=== PATIENT | male | born 1950 | race Caucasian/White ===

== ENCOUNTER → 2018-12-14 | Outpatient (CLI) | payer OTHER ==
[2018-12-14] MEDS: REGADENOSON 0.4 MG/5 ML DISP.SYRIN. IV ONE (08:30)
--- NOTE | 2018-12-14 11:01 | CARD ---
MR#: [id number] Date of Study: 12/14/2018 Ordering Physician: JEVON NDIAYE, Referring Physician: JEVON NDIAYE, Tech: Lizzie Chávez APPROVED REPORT EXAM: Two-dimensional and M-mode echocardiogram with Doppler and color Doppler. Other Information Quality : AverageHR: 68bpm INDICATION Cardiac Disease: CAD RISK FACTORS Hypertension Smoking 2D DIMENSIONS RVDd2.5 (2.9-3.5cm)Left Atrium(2D)3.0 (1.6-4.0cm) IVSd1.2 (0.7-1.1cm)Aortic Root(2D)2.9 (2.0-3.7cm) LVDd4.1 (3.9-5.9cm)LVOT Diameter2.0 (1.8-2.4cm) PWd0.9 (0.7-1.1cm)LVDs2.6 (2.5-4.0cm) FS (%) 36.1 %SV49.1 ml LVEF(%)66.2 (>50%) Aortic Valve AoV Peak Teofilo.114.3cm/sAoV VTI28.0cm AO Peak GR.5.2mmHgLVOT Peak Teofilo.99.1cm/s LVOT VTI 24.90cmAO Mean GR.3mmHg BESS (VMAX)2.11dj9SET (VTI)2.84cm2 Mitral Valve MV E Xxmrogxe26.7cm/sMV DECEL FTJR226hs MV A Uxveooif50.5cm/sE/A Ratio1.2 Pulmonary Valve PV Peak Yximvrnb254.7cm/sPV Peak Grad.4mmHg Tricuspid Valve TR P. Pjmxpegj172en/sRAP DLLTLWEJ6lySn TR Peak Gr.86ceZhVLMJ64dnJj Pulmonary Vein S1 Ckgitxrh35.8cm/sD2 Dymbwsxe26.1cm/s LEFT VENTRICLE The left ventricle is normal size. There is mild to moderate concentric left ventricular hypertrophy. The left ventricular systolic function is normal and the ejection fraction is within normal range. T he Ejection Fraction is 55-60%. There is normal LV segmental wall motion. Transmitral Doppler flow pa ttern is Grade II-pseudonormal filling dynamics. RIGHT VENTRICLE The right ventricle is normal size. There is normal right ventricular wall thickness. The right ventr icular systolic function is normal. ATRIA The left atrium size is normal. The right atrium size is normal. The interatrial septum is intact wit h no evidence for an atrial septal defect or patent foramen ovale as noted on 2-D or Doppler imaging. AORTIC VALVE The aortic valve is normal in structure and function. Doppler and Color Flow revealed no significant aortic regurgitation. There is no significant aortic valvular stenosis. MITRAL VALVE The mitral valve is normal in structure and function. There is no evidence of mitral valve prolapse. There is no mitral valve stenosis. Doppler and Color-flow revealed trace mitral regurgitation. TRICUSPID VALVE The tricuspid valve is normal in structure and function. Doppler and Color Flow revealed trace tricus pid regurgitation with an estimated PAP of 33 mmHg. There is no tricuspid valve prolapse or vegetatio n. There is no tricuspid valve stenosis. PULMONIC VALVE The pulmonic valve is not well visualized. Doppler and Color Flow revealed no pulmonic valvular regur gitation. There is no pulmonic valvular stenosis. GREAT VESSELS The aortic root is normal in size. The IVC is normal in size and collapses >50% with inspiration. PERICARDIAL EFFUSION There is no evidence of significant pericardial effusion. Critical Notification Critical Value: No <Conclusion> The left ventricular systolic function is normal and the ejection fraction is within normal range. Th e Ejection Fraction is 55-60%. There is normal LV segmental wall motion. Signed by : Jevon Ndiaye, Electronically Approved : 12/14/2018 11:01:22
--- NOTE | 2018-12-14 12:34 | RAD ---
MR#: [id number] Date of Study: 12/14/2018 Ordering Physician: JEVON CANALES, Referring Physician: ALTA HERNANDEZ Tech: RT Luke (Nina) (N) APPROVED REPORT Test Type: Pharmacological Test Indications: CAD Cardiac History: See Electronic Medical Record Resting Heart Rate: 60 bpm Resting Blood Pressure: 165/72mmHg Pretest Chest Pain: No chest pain Pharm. Details Pharmacologic stress testing was performed using 0.4mg per 5ml of regadenoson given intravenously ove r 7-10 seconds. Stress Symptoms Dyspnea POST EXERCISE Max HR: 124 bpm Max Blood Pressure: 127/62mmHg Blood Pressure response to exercise: Normal blood pressure response during stress. Chest Pain: No. INTERPRETATION Stress EKG Conclusion: No evidence of stress induced EKG changes. Imaging Protocol IMAGE PROTOCOL: Stress Tc-99m/rest Tc-99m 2 days Rest: Stress: Viability: Radiopharm.Tc99m Sestamibi [id number] Duration 15min. Img Date 12/14/2018 Inj-Img Gosp97izw. Stress Admin Site: IV - Right HandAdministrator: RT Luke (Nina)(N) STRESS DATA End Diast. Vol.72.0mlAv. Heart Rate60.0bpm End Syst. Vol.15.0mlCO Index BSA3.4L/min Myocardial Shoi515.0gEject. Zdxncqjn10.0% Stress Rates Pk. Fill Rate3.11EDV/secLVtime Pk. Fill 290.57msec Pk. Empty Rate4.02ESV/secLVtime Pk. Fpcvt372.59msec 04/22 Pk. Fill1.13EDV/sec Stress Scores Regional WT3.00Summed WT12.00 Regional WM0.00Summed WM2.00 LV Perfusion Normal perfusion at stress Wall Motion Normal wall motion. LV Perf. Quant 17 Seg. SSS3.00 Stress Defect Extent (% LAD)0.00Rest Defect Extent (% LAD)Rev. Defect Extent (% LAD)0.00 Stress Defect Extent (% LCX) 26.30Rest Defect Extent (% LCX)Rev. Defect Extent (% LCX)0.00 Stress Defect Extent (% RCA)0.00Rest Defect Extent (% RCA)Rev. Defect Extent (% RCA)0.00 Stress Defect Extent (% SENA)4.60Rest Defect Extent (% SENA)Rev. Defect Extent (% SENA)0.00 Other Information Quality:Good Risk Assessment: Low Risk Conclusion 1. No evidence of EKG changes with stress testing. 2. Normal perfusion at stress. 3. Low risk study. 4. EF > 60%. Signed by : Jevon Canales, Electronically Approved : 12/14/2018 12:33:32
--- NOTE | 2018-12-14 18:32 | RAD ---
MR#: [id number] Date of Study: 12/14/2018 Ordering Physician: JEVON NDIAYE, Referring Physician: JEVON NDIAYE, Tech: Amna Velázquez RVT,[facility] APPROVED REPORT Patient Location: OUT-PATIENT Indications Claudication: PAD Grayscale images of the bilateral lower extremity arterial vessels revealed diffuse moderate atherosc lerosis. On the right there is likely a greater than 50% stenosis involving the saphenous popliteal junction. The below-knee waveforms are monophasic. On the left the SFAs occluded from the proximal to distal segment. There is reconstitution at the sap henous popliteal junction. The below-knee waveforms are monophasic and severely diminished in velocit y suggestive of more proximal disease. Risk Factors Hypertension Hyperlipidemia Smoking VELOCITY AND DOPPLER WAVEFORM ANALYSIS RIGHT cm/secWaveformSeverity LEFT cm/secWaveform Severity pCFA 176.0BiphasicpCFA 89.0Triphasic Prof Fem Art. 239.6BiphasicProf Fem Art. Fem Art Prox. 126.4BiphasicFem Art Prox. Occluded Fem Art Mid. 145.3BiphasicFem Art Mid. Occluded Fem Art Dist. 94.0BiphasicFem Art Dist. 62.0Monophasic Pop Art(AK) Pop Art(AK) Pop Art(Fossa) 36.6BiphasicPop Art(AK) 27.0Monophasic Pop Art(BK) Pop Art(BK) EDITOR DEPARTMENT Prox. 39.8BiphasicPTA Prox. 19.9Monophasic EDITOR DEPARTMENT Dist. 25.3MonophasicPTA Dist. 25.5Monophasic Per Art Mid. 47.0BiphasicPer Art Mid. 17.1Monophasic LILIANA Prox. 106.6BiphasicATA Prox. 21.7Monophasic DPA 83BiphasicDPA 15.0Monophasic Critical Notification Critical Value: No <Conclusion> 1. Severe left-sided disease, moderate right sided disease. Signed by : Jevon Ndiaye, Electronically Approved : 12/14/2018 18:32:07
--- NOTE | 2018-12-14 18:34 | RAD ---
MR#: [id number] Date of Study: 12/14/2018 Ordering Physician: JEVON NDIAYE, Referring Physician: JEVON NDIAYE, Tech: Amna Velázquez RVT, [facility] APPROVED REPORT Patient Location: OUT-PATIENT Laterality:Bilateral Indications Grayscale images of the bilateral common carotid arteries demonstrates moderate plaque at the level o f the carotid bulbs. Based on spectral waveforms and velocities there is overall 0 to less than 50% stenosis involving the internal carotid arteries bilaterally. The vertebral velocities are antegrade. Normal ICA to CCA rat ios noted. Risk Factors Hypertension: PAD Smoking Doppler Spectral Velocity Analysis Right Left pCCA 119/11 cm/spCCA 136/24 cm/s mCCA 101/14 cm/smCCA 116/16 cm/s dCCA 74/12 cm/sdCCA 89/16 cm/s Bulb 61/10 cm/sBulb 120/20 cm/s ECA 133/13 cm/sECA 106/6 cm/s pICA 61/13 cm/spICA 111/16 cm/s Susan 78/26 cm/smICA 91/23 cm/s dICA 80/22 cm/sdICA 93/25 cm/s Vert. 67/15 cm/sVert. 52/10 cm/s ICA/CCA 0.67ICA/CCA 0.82 Critical Notification Critical Value: No <Conclusion> 1. No significant bilateral carotid occlusive disease. Signed by : Jevon Ndiaye, Electronically Approved : 12/14/2018 18:34:12
== END | disposition home or self-care (01) ==
LOC: NM 07:44
PROVIDERS: ATTEND Internal Medicine Cardiovascular Disease
DX: I65.23 Occlusion and stenosis of bilateral carotid arteries (principal); I11.9 Hypertensive heart disease without heart failure; I25.10 Atherosclerotic heart disease of native coronary artery without angina pectoris; E78.5 Hyperlipidemia, unspecified; I73.9 Peripheral vascular disease, unspecified; Z87.891 Personal history of nicotine dependence
CPT/HCPCS: 78452; 93017; 93306; 93880; 93925; A9500; J2785

== ENCOUNTER 2019-08-20 15:23 | Emergency (ER) | payer MEDICARE, OTHER ==
[~2019-08-20] VITALS: Ht 170.2 cm; Wt 55.0 kg
[2019-08-20 15:23] VITALS: BP 111/65
== END 2019-08-20 15:36 | disposition left against medical advice (07) ==
LOC: ER 15:23
DX: G47.00 Insomnia, unspecified (principal); Z53.21 Procedure and treatment not carried out due to patient leaving prior to being seen by health care provider

== ENCOUNTER 2019-09-26 12:43 | Emergency (ER) | payer MEDICARE ==
[~2019-09-26] VITALS: Ht 170.2 cm; Wt 54.0 kg
[2019-09-26 12:47] VITALS: BP 105/62
--- NOTE | 2019-09-26 13:08 | PHYS DOC ---
Past History Past Medical History: High Cholesterol, Hypertension, Schizophrenia Additional Past Medical Histor: PVD Additional Past Surgical Histo: Femoropopliteal bypass Smoking: Cigarettes Alcohol Use: Occasionally General Adult EDM: Chief Complaint: BACK PAIN OR INJURY HPI: HPI: Patient is a 69-year-old male who presents to the emergency department for evaluation of atraumatic lower back pain, which has been waxing and waning for t he past few days. He denies any definite injury. He has not had any falls, and describes the pain in his sacral area, worse when he sits down. He denies any numbness, weakness, incontinence, or saddle anesthesia. He has not had any fevers or chills. There are no alleviating or exacerbating factors to his symptoms otherwise. Review of Systems: Review of Systems: Constitutional: Denies fever or chills Eyes: Denies change in visual acuity HENT: Denies nasal congestion or sore throat Respiratory: Denies cough or shortness of breath Cardiovascular: Denies chest pain or edema GI: Denies abdominal pain, nausea, vomiting, bloody stools or diarrhea : Denies dysuria Musculoskeletal: Denies upper or mid back pain or joint pain Integument: Denies rash Neurologic: Denies headache, focal weakness or sensory changes Endocrine: Denies polyuria or polydipsia Lymphatic: Denies swollen glands Psychiatric: Denies depression or anxiety Heart Score: Risk Factors: Risk Factors: DM, Current or recent (<one month) smoker, HTN, HLP, family history of CAD, obesity. Risk Scores: Score 0 - 3: 2.5% MACE over next 6 weeks - Discharge Home Score 4 - 6: 20.3% MACE over next 6 weeks - Admit for Clinical Observation Score 7 - 10: 72.7% MACE over next 6 weeks - Early Invasive Strategies Current Medications: Current Meds: Current Medications Medications (Trade) Dose Ordered Sig/Gosia Start Time Stop Time Status Last Admin Dose Admin Acetaminophen (Tylenol) 650 mg 1X ONCE 09/26/19 13:15 09/26/19 13:16 UNV Allergies: Allergies: Allergies Coded Allergies Type Severity Reaction Last Updated Verified No Known Drug Allergies 12/14/18 No Physical Exam: PE: PHYSICAL EXAM: CONSTITUTIONAL: Well developed, well nourished HEAD: normocephalic, atraumatic EENT: PERRL, EOMI. Conjunctivae normal color, sclerae non-icteric; moist mucous membranes. NECK: Supple, non-tender; no meningismus. LUNGS: Lungs CTA, breathing even and unlabored. Normal air movement. HEART: Regular rate and rhythm, no murmur CHEST: No deformity; non-tender ABDOMEN: The abdomen is soft, and non-tender, no palpable or pulsatile masses or bruits. EXTREM: Normal ROM; no deformity, no calf tenderness. Normal pulses palpable in all extremities. There is no pedal edema. SKIN: No rash; no diaphoresis NEURO: Alert; normal speech and cognition; CN's grossly intact; strength grossly intact without focal deficit. Patellar reflexes are 2+ bilaterally. There is no foot drop. There is no perineal anesthesia. BACK: No CVA TTP. There is mild tenderness to palpation in the sacral area, the remainder of the lumbar spine is nontender. EKG: EKG: [] Radiology/Procedures: Radiology/Procedures: PROCEDURE: SCAN OF ABDOMINAL AORTA Ultrasound of the abdominal aorta 09/26/2019 CLINICAL HISTORY: Low back pain. History of peripheral vascular disease. TECHNIQUE: A real-time ultrasound examination of the abdominal aorta was performed. Multiple images were obtained. FINDINGS: Moderate atheromatous/atherosclerotic plaque formation is seen involving the abdominal aorta and its branches. The abdominal aorta tapers normally. No aneurysm is seen. The common iliac arteries are not well visualized due to overlying bowel gas. IMPRESSION: Moderate atheromatous/atherosclerotic plaque formation is seen involving the abdominal aorta. No aneurysm is seen.[] PROCEDURE: LUMBAR SPINE 2-3V Three-view lumbar spine radiographs 09/26/2019 CLINICAL HISTORY: Low back pain. AP and 2 lateral digital radiographs of the lumbar spine were obtained. Very mild S-shaped curvature of the thoracolumbar spine is seen. No fracture or subluxation of the lumbar vertebrae is noted. Degenerative changes are seen involving the lower thoracic and throughout the lumbar disc spaces consisting of vertebral endplate sclerosis and minimal to mild anterior and posterior vertebral body osteophyte formation. Degenerative changes are seen involving the facet joints throughout the mid and lower lumbar disc spaces. Atherosclerotic calcification of the abdominal aorta and its branches is seen. IMPRESSION: No fracture or subluxation of the lumbar vertebrae is seen. Course & Med Decision Making: Course & Med Decision Making Pertinent Labs and Imaging studies reviewed. (See chart for details) [] 1:35 PM: The patient's condition remains stable. I discussed test results in detail with the patient, the need for further outpatient evaluation by his PCP/vascular surgeon, home care plan and return precautions Taco Disclaimer: Taco Disclaimer: This electronic medical record was generated, in whole or in part, using a voice recognition dictation system. Departure Departure: Impression: Primary Impression: Low back pain Disposition: HOME/RESIDENCE PRIOR TO ADM Condition: STABLE Referrals: JOSE MOCK (PCP) Patient Instructions: Atherosclerosis, Back Pain, Adult, Smoking Cessation Additional Instructions: Ibuprofen 400-600 mg every 6 hours may help improve your symptoms. Applying a heating pad to the affected area may help improve your symptoms. The prescribed medications may cause drowsiness-use caution while taking. Scripts Cyclobenzaprine Hcl (CYCLOBENZAPRINE HCL) 10 Mg Tablet 1 TAB PO TID PRN for PAIN, #20 TAB Prov: TRISTIAN SERRA MD 09/26/19 Justification of Admission: Justification of Admission: Justification of Admission Dx: N/A TRISTIAN SERRA MD Sep 26, 2019 13:08
[2019-09-26] MEDS ORDERED: ACETAMINOPHEN 325 MG TABLET PO ONE (13:15)
--- NOTE | 2019-09-26 13:32 | RAD ---
Ultrasound of the abdominal aorta 09/26/2019 CLINICAL HISTORY: Low back pain. History of peripheral vascular disease. TECHNIQUE: A real-time ultrasound examination of the abdominal aorta was performed. Multiple images were obtained. FINDINGS: Moderate atheromatous/atherosclerotic plaque formation is seen involving the abdominal aorta and its branches. The abdominal aorta tapers normally. No aneurysm is seen. The common iliac arteries are not well visualized due to overlying bowel gas. IMPRESSION: Moderate atheromatous/atherosclerotic plaque formation is seen involving the abdominal aorta. No aneurysm is seen. Electronically signed by: Froy Pérez MD (09/26/2019 1:29 PM) [id number]
--- NOTE | 2019-09-26 13:34 | RAD ---
Three-view lumbar spine radiographs 09/26/2019 CLINICAL HISTORY: Low back pain. AP and 2 lateral digital radiographs of the lumbar spine were obtained. Very mild S-shaped curvature of the thoracolumbar spine is seen. No fracture or subluxation of the lumbar vertebrae is noted. Degenerative changes are seen involving the lower thoracic and throughout the lumbar disc spaces consisting of vertebral endplate sclerosis and minimal to mild anterior and posterior vertebral body osteophyte formation. Degenerative changes are seen involving the facet joints throughout the mid and lower lumbar disc spaces. Atherosclerotic calcification of the abdominal aorta and its branches is seen. IMPRESSION: No fracture or subluxation of the lumbar vertebrae is seen. Electronically signed by: Froy Pérez MD (09/26/2019 1:32 PM) [id number]
[2019-09-26] MEDS ORDERED: CYCL-331 PO (13:40)
== END 2019-09-26 13:48 | disposition home or self-care (01) ==
LOC: ER 12:43
DX: M54.5 Low back pain (principal); E78.00 Pure hypercholesterolemia, unspecified; I10 Essential (primary) hypertension; F20.9 Schizophrenia, unspecified; F17.210 Nicotine dependence, cigarettes, uncomplicated
CPT/HCPCS: 72100; 76770; 99284

== ENCOUNTER → 2019-11-03 | Outpatient (CLI) | payer MEDICARE ==
[~2019-11-03] MED LIST: CYCL-331 PO
== END | disposition home or self-care (01) ==
LOC: LAB 15:16
PROVIDERS: ATTEND Psychiatry & Neurology Neurology
DX: R41.3 Other amnesia (principal)
CPT/HCPCS: 82607; 82746; 86592

== ENCOUNTER 2019-11-18 15:54 | Emergency (ER) | payer MEDICARE ==
[~2019-11-18] VITALS: Ht 172.7 cm; Wt 59.0 kg
[2019-11-18 15:54] VITALS: BP 140/61
[2019-11-18 16:22] LABS: BASO # 0.1 x10^3/uL (0.0-0.2); BASO % 1 % (0-3); EOS # 0.3 x10^3/uL (0.0-0.7); EOS % 4 % (0-3); HEMATOCRIT 45.3 % (39.0-53.0); HEMOGLOBIN 15.3 g/dL (13.0-17.5); LYMPH # 2.7 x10^3/uL (1.0-4.8); LYMPH % 34 % (24-48); MEAN CORPUSCULAR HEMOGLOBIN 32 pg (25-35); MEAN CORPUSCULAR HGB CONC 34 g/dL (31-37); MEAN CORPUSCULAR VOLUME 94 fL (79-100); MONO # 0.7 x10^3/uL (0.0-1.1); MONO % 8 % (0-9); NEUT # 4.3 x10^3uL (1.8-7.7); NEUT % 54 % (31-73); PLATELET COUNT 151 x10^3/uL (140-400); RED BLOOD COUNT 4.81 x10^6/uL (4.30-5.70); RED CELL DISTRIBUTION WIDTH 13.4 % (11.5-14.5); WHITE BLOOD COUNT 8.1 x10^3/uL (4.0-11.0)
--- NOTE | 2019-11-18 16:23 | RAD ---
CHEST AP ONLY History: Reason: weakness, cough hx smoker x 50 years / Spl. Instructions: / History: Comparison: None. Findings: Hyperinflation. No consolidation or pleural effusion. No pneumothorax. Normal heart size. Impression: 1. No acute cardiopulmonary process. Electronically signed by: David Mabry DO (11/18/2019 4:19 PM) [facility]
--- NOTE | 2019-11-18 16:24 | EKG ---
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
[2019-11-18 16:27] LABS: CREATININE 1.1 mg/dL (0.7-1.3); GFR 66.6; POTASSIUM 3.8 mmol/L (3.5-5.1)
[2019-11-18 16:34] LABS: ALBUMIN 3.9 g/dL (3.4-5.0); ALBUMIN/GLOBULIN RATIO 1.2 (1.0-1.7); TOTAL BILIRUBIN 0.5 mg/dL (0.2-1.0); TOTAL PROTEIN 7.1 g/dL (6.4-8.2)
[2019-11-18 16:55] LABS: BARBITURATES NEG (NEG); BENZODIAZEPINES NEG (NEG); CANNABINOIDS NEG (NEG); COCAINE NEG (NEG); METHADONE NEG (NEG); OPIATES NEG (NEG); PHENCYCLIDINE NEG (NEG)
[2019-11-18 16:57] LABS: AMPHETAMINE/METHAMPHETAMINE NEG (NEG)
--- NOTE | 2019-11-18 17:02 | PHYS DOC ---
Past History Past Medical History: Hypertension Additional Past Medical Histor: PVD Additional Past Surgical Histo: Facial Surgery Smoking: Cigarettes Alcohol Use: Heavy General Adult EDM: Chief Complaint: WEAKNESS/GENERALIZED HPI: HPI: 69-year-old male presents with generalized weakness. Patient was feeling normal earlier today. He was running some errands and shopping. When he came home, he got out of the vehicle and had an episode of stumbling. He steadied himself against the vehicle. He had a second episode was he went into the garage. He had a third episode going through the door from the garage to the house. The patient found this very concerning as he has not had symptoms like this before. He did not fall to the ground. He did not have a syncopal episode. He felt so "weird" that he thought he should come to the hospital for evaluation. Review of Systems: Review of Systems: Constitutional: Denies fever or chills Eyes: Denies change in visual acuity HENT: Denies nasal congestion or sore throat Respiratory: Denies cough or shortness of breath Cardiovascular: Denies chest pain or edema GI: Denies abdominal pain, nausea, vomiting, bloody stools or diarrhea : Denies dysuria Musculoskeletal: Generalized weakness Integument: Denies rash Neurologic: Denies headache, focal weakness or sensory changes Endocrine: Denies polyuria or polydipsia Lymphatic: Denies swollen glands Psychiatric: Denies depression or anxiety Heart Score: Risk Factors: Risk Factors: DM, Current or recent (<one month) smoker, HTN, HLP, family history of CAD, obesity. Risk Scores: Score 0 - 3: 2.5% MACE over next 6 weeks - Discharge Home Score 4 - 6: 20.3% MACE over next 6 weeks - Admit for Clinical Observation Score 7 - 10: 72.7% MACE over next 6 weeks - Early Invasive Strategies Allergies: Allergies: Allergies Coded Allergies Type Severity Reaction Last Updated Verified No Known Drug Allergies 12/14/18 No Physical Exam: PE: Constitutional: Well developed, thin, well nourished, no acute distress, non- toxic appearance. [] HENT: Normocephalic, atraumatic, bilateral external ears normal, oropharynx moist, no oral exudates, nose normal. [] Eyes: PERRLA, EOMI, conjunctiva normal, no discharge. [] Neck: Normal range of motion, no tenderness, supple, no stridor. [] Cardiovascular: Heart rate regular rhythm, no murmur [] Lungs & Thorax: Bilateral breath sounds diminished but clear [] Abdomen: Bowel sounds normal, soft, no tenderness, no masses, no pulsatile masses. [] Skin: Warm, dry, no erythema, no rash. [] Back: No tenderness, no CVA tenderness. [] Extremities: No tenderness, no cyanosis, no clubbing, ROM intact, no edema. [] Neurologic: Alert and oriented X 3, normal motor function, normal sensory function, no focal deficits noted. [] Psychologic: Affect normal, judgement normal, mood normal. [] Current Patient Data: Labs: Laboratory Tests Test 11/18/19 16:00 11/18/19 16:36 White Blood Count 8.1 x10^3/uL (4.0-11.0) Red Blood Count 4.81 x10^6/uL (4.30-5.70) Hemoglobin 15.3 g/dL (13.0-17.5) Hematocrit 45.3 % (39.0-53.0) Mean Corpuscular Volume 94 fL (79-100) Mean Corpuscular Hemoglobin 32 pg (25-35) Mean Corpuscular Hemoglobin Concent 34 g/dL (31-37) Red Cell Distribution Width 13.4 % (11.5-14.5) Platelet Count 151 x10^3/uL (140-400) Neutrophils (%) (Auto) 54 % (31-73) Lymphocytes (%) (Auto) 34 % (24-48) Monocytes (%) (Auto) 8 % (0-9) Eosinophils (%) (Auto) 4 % (0-3) H Basophils (%) (Auto) 1 % (0-3) Neutrophils # (Auto) 4.3 x10^3uL (1.8-7.7) Lymphocytes # (Auto) 2.7 x10^3/uL (1.0-4.8) Monocytes # (Auto) 0.7 x10^3/uL (0.0-1.1) Eosinophils # (Auto) 0.3 x10^3/uL (0.0-0.7) Basophils # (Auto) 0.1 x10^3/uL (0.0-0.2) Sodium Level 136 mmol/L (136-145) Potassium Level 3.8 mmol/L (3.5-5.1) Chloride Level 99 mmol/L (98-107) Carbon Dioxide Level 24 mmol/L (21-32) Anion Gap 13 (6-14) Blood Urea Nitrogen 11 mg/dL (8-26) Creatinine 1.1 mg/dL (0.7-1.3) Estimated GFR (Cockcroft-Gault) 66.6 BUN/Creatinine Ratio 10 (6-20) Glucose Level 106 mg/dL (70-99) H Calcium Level 9.0 mg/dL (8.5-10.1) Total Bilirubin 0.5 mg/dL (0.2-1.0) Aspartate Amino Transferase (AST) 22 U/L (15-37) Alanine Aminotransferase (ALT) 26 U/L (16-63) Alkaline Phosphatase 64 U/L (46-116) Troponin I Quantitative 0.026 ng/mL (0-0.055) Total Protein 7.1 g/dL (6.4-8.2) Albumin 3.9 g/dL (3.4-5.0) Albumin/Globulin Ratio 1.2 (1.0-1.7) Ethyl Alcohol Level 137 mg/dL (0-10) H Urine Opiates Screen Neg (NEG) Urine Methadone Screen Neg (NEG) Urine Barbiturates Neg (NEG) Urine Phencyclidine Screen Neg (NEG) Urine Amphetamine/Methamphetamine Neg (NEG) Urine Benzodiazepines Screen Neg (NEG) Urine Cocaine Screen Neg (NEG) Urine Cannabinoids Screen Neg (NEG) Urine Ethyl Alcohol Pos (NEG) Vital Signs: Vital Signs Date Time Temp Pulse Resp B/P (MAP) Pulse Ox O2 Delivery O2 Flow Rate FiO2 11/18/19 15:54 97.8 71 16 140/61 (87) 97 Room Air EKG: EKG: [] Radiology/Procedures: Radiology/Procedures: [] Impressions: CHEST AP ONLY History: Reason: weakness, cough hx smoker x 50 years / Spl. Instructions: / History: Comparison: None. Findings: Hyperinflation. No consolidation or pleural effusion. No pneumothorax. Normal heart size. Impression: 1. No acute cardiopulmonary process. Electronically signed by: Venus Mcadams DO (11/18/2019 4:19 PM) [facility] DICTATED AND SIGNED BY: VENUS MCADAMS DO DATE: 11/18/19 1619 CC: ARPITA MARQUEZ DO; JOSE MOCK ~ Course & Med Decision Making: Course & Med Decision Making Pertinent Labs and Imaging studies reviewed. (See chart for details) Patient's chest x-ray is negative for acute findings. His labs are unremarkable. His urinalysis is negative for infection. He does have some alcohol which is consistent with what he told me about having a couple of beers. This could be the cause of the patient's symptoms. He also told me that he only slept about 2 hours last night and has not been eating well lately. This could have been transient hypo-tension or hypoglycemia. He is feeling at baseline at this time. He is stable for discharge. [] Dragon Disclaimer: Dragon Disclaimer: This electronic medical record was generated, in whole or in part, using a voice recognition dictation system. Departure Departure: Impression: Primary Impression: Episode of generalized weakness Disposition: HOME/RESIDENCE PRIOR TO ADM Condition: STABLE Referrals: JOSE MOCK (PCP) Patient Instructions: Weakness, [id number] Justification of Admission: Justification of Admission: Justification of Admission Dx: N/A ARPITA MARQUEZ DO Nov 18, 2019 17:02
[2019-11-18 17:16] LABS: COLOR,URINE YELLOW
[2019-11-18 17:17] LABS: BACTERIA,URINE 0 /HPF (0-FEW); BILIRUBIN,URINE NEG (NEG); CLARITY,URINE CLEAR; GLUCOSE,URINE NEG (NEG); NITRITE,URINE NEG (NEG); RBC,URINE 0 /HPF (0-2); UROBILINOGEN,URINE 0.2 mg/dL (0.2 mg/dL); WBC,URINE OCC /HPF (0-4)
--- NOTE | 2019-11-19 14:56 | EKG ---
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
== END 2019-11-18 17:30 | disposition home or self-care (01) ==
LOC: ER 15:54
DX: R53.1 Weakness (principal); I10 Essential (primary) hypertension; F17.210 Nicotine dependence, cigarettes, uncomplicated; F10.20 Alcohol dependence, uncomplicated; Y90.6 Blood alcohol level of 120-199 mg/100 ml
CPT/HCPCS: 36415; 71045; 80053; 80307; 81001; 84484; 85025; 93005; 99285; G0480

== ENCOUNTER 2020-02-01 13:22 | Emergency (ER) | payer MEDICARE ==
[~2020-02-01] VITALS: Ht 172.7 cm; Wt 53.6 kg
[2020-02-01 13:48] VITALS: BP 144/97
--- NOTE | 2020-02-01 13:59 | RAD ---
Examination: SACRUM COCCYX 3V History: Reason: pain s/p fall / Spl. Instructions: / History: Comparison/Correlation: None Findings: Total of 3 images of the sacrum and coccyx were provided consisting of frontal and lateral views. Mild spurring at L5 is present. Sacroiliac joints are symmetric. No displaced fracture or bone destruction. Surgical clips overlie the left groin region. Calcific involvement of the abdominal aorta and iliac arteries noted. Impression: No suspicious process. Consider further imaging if occult fracture is a persistent concern. Electronically signed by: Don Pritchett MD (02/01/2020 1:56 PM) [facility]
--- NOTE | 2020-02-01 14:02 | PHYS DOC ---
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 General Adult EDM: Chief Complaint: MECHANICAL FALL HPI: HPI: Patient is a 69 year old Male who presents with low back pain. He fell yesterday afternoon following house work. He fell onto concrete [place] and began exhibiting pain near his coccyx and radiation in groin. He denies any low of bowel or bladder control, but complains of diarrhea like symptoms 10x/day prior to episode. He reports minimal relief with ibuprofen and tylenol. He reports pain with sitting, laying down or taking large steps. He reports relief with standing upright with minimal movement. He reports the pain is dull, achy and rated 10/10. He has not been able to sleep and constipated since yesterday AM. Patient reports he typically has loose stools. He does not like needles. Review of Systems: Review of Systems: Constitutional: Denies fever or chills Eyes: Denies redness or eye pain HENT: Admits chronic tinnitus, difficulty hearing. Denies nasal congestion or sore throat Respiratory: Denies cough or shortness of breath Cardiovascular: Denies chest pain or palpitations GI: Admits constipation. Denies abdominal pain, nausea, or vomiting : Denies dysuria or hematuria Musculoskeletal: Admits back pain. Denies joint pain Integument: Denies rash or skin lesions Neurologic: Denies headache, focal weakness or sensory changes Complete systems were reviewed and found to be within normal limits, except as documented in this note. Allergies: Allergies: Allergies Coded Allergies Type Severity Reaction Last Updated Verified No Known Drug Allergies 12/14/18 No Physical Exam: PE: Constitutional: Well developed, well nourished, no acute distress, non-toxic appearance HENT: Normocephalic, atraumatic Eyes: PERRL, EOMI, conjunctiva normal, no discharge Neck: Normal range of motion, no tenderness, supple Lungs & Thorax: No respiratory distress, equal chest rise and fall Abdomen: Soft, no tenderness Skin: Warm, dry, no erythema, no rash Back: Tenderness near coccyx, no sacral tenderness, no CVA tenderness Extremities: No tenderness, ROM intact, no edema, no pain with straight leg raise bilaterally Neurologic: Alert and oriented X 3, normal motor function, normal sensory function, no focal deficits noted Psychologic: Affect normal, judgment normal Current Patient Data: Vital Signs: Vital Signs Date Time Temp Pulse Resp B/P (MAP) Pulse Ox O2 Delivery O2 Flow Rate FiO2 02/01/20 13:48 98.1 82 18 144/97 (113) 98 Radiology/Procedures: Radiology/Procedures: PROCEDURE: SACRUM & COCCYX 3V Examination: SACRUM COCCYX 3V History: Reason: pain s/p fall / Spl. Instructions: / History: Comparison/Correlation: None Findings: Total of 3 images of the sacrum and coccyx were provided consisting of frontal and lateral views. Mild spurring at L5 is present. Sacroiliac joints are symmetric. No displaced fracture or bone destruction. Surgical clips overlie the left groin region. Calcific involvement of the abdominal aorta and iliac arteries noted. Impression: No suspicious process. Consider further imaging if occult fracture is a persistent concern. Electronically signed by: Don Pritchett MD (02/01/2020 1:56 PM) [facility] Course & Med Decision Making: Course & Med Decision Making Patient is a 69yo male who presents with low back pain from a fall. Patient is seen and examined. He has taken ibuprofen and tylenol with minimal pain relief. Pertinent imaging studies reviewed. Patient was prescribed hydrocodone. Patient stable for discharge with outpatient follow-up with PCP. Discussed findings and plan with patient, who acknowledges understanding and agreement. Taco Disclaimer: Taco Disclaimer: This electronic medical record was generated, in whole or in part, using a voice recognition dictation system. Departure Departure: Impression: Primary Impression: Sacral contusion Qualified Codes: S30.0XXA - Contusion of lower back and pelvis, initial encounter Disposition: 01 DC HOME SELF CARE/HOMELESS Condition: STABLE Referrals: GISSEL CONRAD (PCP) Patient Instructions: Contusion, [id number] Scripts Hydrocodone Bit/Acetaminophen (NORCO 5-325 TABLET) 1 Each Tablet 0.5-1 TAB PO Q6HRS PRN for PAIN, #10 TAB Prov: VINCENZO VANEGAS DO 02/01/20 VINCENZO VANEGAS DO Feb 01, 2020 14:02
[2020-02-01] MEDS ORDERED: HYDR-3165 PO (14:27)
[2020-02-01] MEDS ORDERED: HYDROcodone/APAP 5/325MG 1 TAB TABLET PO ONE (14:30)
== END 2020-02-01 14:32 | disposition home or self-care (01) ==
LOC: ER 13:22
DX: S30.0XXA Contusion of lower back and pelvis, initial encounter (principal); E78.00 Pure hypercholesterolemia, unspecified; I10 Essential (primary) hypertension; F17.210 Nicotine dependence, cigarettes, uncomplicated; F10.20 Alcohol dependence, uncomplicated; Y90.9 Presence of alcohol in blood, level not specified; W18.39XA Other fall on same level, initial encounter; Y93.89 Activity, other specified; Y92.89 Other specified places as the place of occurrence of the external cause; Y99.8 Other external cause status
CPT/HCPCS: 72220; 99283